=== PATIENT | female | born 1995 | race African-American/Black ===

== ENCOUNTER 2021-03-01 11:59 | Emergency (ER) | payer SELFPAY ==
[2021-03-01 12:10] VITALS: BP 120/72; PULSE 72; RESP 18; TEMP 37.7; O2SAT 94; BMI 27.3
[2021-03-01 12:37] LABS: Glucose Point of Care 109 mg/dL (70-110)
[2021-03-01 13:31] LABS: Basophils % 0.3 %; Eosinophils # 0.1 10^3/uL (0.0-0.8); Hematocrit 38.7 % (37.0-47.0); Hemoglobin 12.9 g/dL (11.5-15.3); Lymphocytes # 2.2 10^3/uL (0.8-4.8); Lymphocytes % 34.6 %; Mean Corpuscular HGB Conc 33.3 g/dL (30.0-36.0); Mean Corpuscular Hemoglobin 29.9 pg (28.0-34.0); Mean Corpuscular Volume 89.6 fL (81-99); Mean Platelet Volume 9.3 fL (7.4-10.4); Monocytes # 0.4 10^3/uL (0.2-0.9); Monocytes % 5.6 %; Neutrophils # 3.63 10^3/uL (1.8-7.7); Neutrophils % 58.3 %; Nucleated Red Blood Cells % 0 %; Platelet Count 200 10^3/cmm (130-400); Red Blood Count 4.32 10^6/uL (4.1-5.3); Red Cell Distribution Width 11.6 % (12.1-15.1); White Blood Count 6.2 10^3/uL (4.0-10.0)
--- NOTE | 2021-03-01 13:40 | W.ED.GENADLT ---
HPI - General Adult General: Chief complaint: General Medical Stated complaint: blood sugar high, HTN Time Seen by Provider: 03/01/21 13:15 History of Present Illness: HPI narrative: Patient is a 25-year-old female comes to the ED for blood sugar issues. Patient says for the past several months at least once a week she has episodes where she feels a little shaky around midday and then when she eats something or drinks something with sugar she feels better. She checked her blood sugar after similar episode couple weeks ago and it was elevated and she said the number was around 180-190. Patient denies any current symptoms here in the ED. Associated symptoms: Deny chest pain, dyspnea, headache(s), nausea, rash, palpitations or vomiting Review of Systems Const: Denies: fever(s), chills or fatigue Eyes: Denies: change in vision or eye discomfort ENMT: Denies: throat pain, odynophagia, nasal discharge or nasal congestion Card: Denies: chest pain, palpitations, edema, swelling of feet/ankles, dyspnea on exertion or orthopnea Resp: Denies: dyspnea, productive cough or non-productive cough GI: Denies: abdominal pain, nausea, vomiting, diarrhea, constipation or hematochezia : Denies: flank pain, dysuria or hematuria Musc: Denies: neck pain, back pain or extremity swelling Skin/Breast: Denies: rash or new lesions Neuro: Denies: headache(s), numbness in extremities or weakness in extremities Physical Exam Const: COMMON NORMALS: no acute distress, patient oriented x3 and alert GENERAL APPEARANCE: cooperative and comfortable HENMT: COMMON NORMALS: normocephalic HEAD & SCALP: normocephalic MOUTH: Normal oral and palatal mucosa present THROAT: posterior oropharynx normal and uvula midline Neck/C-Spine: COMMON NORMALS: supple GENERAL: Yes normal visual inspection Resp: COMMON NORMALS: normal respiratory effort, No retractions, No use of accessory muscles and clear to auscultation bilaterally AUSCULTATION: clear to auscultation bilaterally Cardio: COMMON NORMALS: regular rate, regular rhythm, S1 normal heart sound present, S2 normal heart sound present, No gallops present (Cardio), No clicks present (Cardio), No murmurs present (Cardio) and Peripheral pulses 2+ throughout RATE: regular rate RHYTHM: regular rhythm HEART SOUNDS: S1 normal heart sound present and S2 normal heart sound present PERIPHERAL PULSES: Peripheral pulses 2+ throughout GI: COMMON NORMALS: Normal to inspection, nondistended, normoactive bowel sounds present, Soft to palpation, non-tender and no masses PALPATION: Yes Soft to palpation : COMMON NORMALS: Yes no CVA tenderness BLADDER/KIDNEY EXAM: Yes no CVA tenderness Back/Pelvis: COMMON NORMALS: no CVA tenderness Extremity: COMMON NORMALS: normal to inspection Neuro: COMMON NORMALS: patient oriented x3 and moves all extremities SENSORIUM/ORIENTATION: Yes alert Skin: GENERAL SKIN EXAM: dry skin Course Vital Signs: Vital signs: Vital Signs Temperature 99.8 F H 03/01/21 12:10 Pulse Rate 72 03/01/21 12:10 Respiratory Rate 18 03/01/21 12:10 Blood Pressure 120/72 03/01/21 12:10 Pulse Oximetry 94 03/01/21 12:10 MDM - General Adult MDM Narrative: Medical decision making narrative: Patient is a 25-year-old female who comes to the ED to get her blood glucose checked. Patient says for the past several months at least once a week she develops feeling of shakiness and fatigue that resolves after she has some snack or sugary drink, so she is concerned that she might have diabetes or some blood sugar issues. She is asymptomatic here in the ED. Blood glucose was 109 and the rest of CBC and CMP were unremarkable. UA unremarkable. hCG was negative. Her exam was normal she is healthy appearing and in no acute distress. Patient was discharged home and told to follow-up with PCP for further evaluation in about a week. Return ED precautions given. Patient understood agree with plan. Lab Data: Attestation: I reviewed the patient's lab results. Labs: Lab Results 03/01/21 03/01/21 03/01/21 Range/Units 12:10 13:20 13:20 WBC 6.2 (4.0-10.0) 10^3/ uL RBC 4.32 (4.1-5.3) 10^6/u L Hgb 12.9 (11.5-15.3) g/dL Hct 38.7 (37.0-47.0) % MCV 89.6 (81-99) fL MCH 29.9 (28.0-34.0) pg MCHC 33.3 (30.0-36.0) g/dL RDW 11.6 L (12.1-15.1) % Plt Count 200 (130-400) 10^3/c mm MPV 9.3 (7.4-10.4) fL Neut % (Auto) 58.3 % Lymph % (Auto) 34.6 % [place] % (Auto) 5.6 % Eos % (Auto) 1.0 % Baso % (Auto) 0.3 % Neut # (Auto) 3.63 (1.8-7.7) 10^3/u L Lymph # (Auto) 2.2 (0.8-4.8) 10^3/u L [place] # (Auto) 0.4 (0.2-0.9) 10^3/u L Eos # (Auto) 0.1 (0.0-0.8) 10^3/u L Baso # (Auto) 0.0 (0.0-0.1) 10^3/u L Nucleated RBC % (a uto) 0 % Nucleated RBCs # 0.0 /100WBC Sodium 138 (136-145) mmol/L Potassium 4.1 (3.5-5.1) mmol/L Chloride 103 (98-107) mmol/L Carbon Dioxide 24 (22-29) mmol/L Anion Gap 15.1 (5-19) BUN 9 (6-20) mg/dL Creatinine 0.7 (0.5-0.9) mg/dL GFR Calculation 123.4 (90-130) mL/min Glucose 91 (65-115) mg/dL POC Glucose 109 (70-110) mg/dL Calculated Osmolal ity 284 L (285-295) mOsm/k g Calcium 8.9 (8.5-10.5) mg/dL Total Bilirubin 0.6 (0.15-1.2) mg/dL AST 14 (0-32) U/L ALT 9 (0-33) U/L Alkaline Phosphata se 67 (35-105) IU/L Total Protein 6.9 (6.6-8.7) g/dL Albumin 4.0 (3.5-5.2) g/dL Globulin 2.9 (1.3-4.6) g/dL HCG, Qual (Negative) Urine Color (Yellow) Urine Appearance (CLEAR) Urine pH (5-7) Ur Specific Gravit y (1.005-1.030) Urine Protein (Negative) Urine Glucose (UA) (Normal) Urine Ketones (Negative) Urine Blood (Negative) Urine Nitrate (Negative) Urine Bilirubin (Negative) Urine Urobilinogen (Negative) mg/dL Ur Leukocyte Sarai ase (Negative) Urine RBC (0-2) /hpf Urine WBC (0-5) /hpf Ur Squamous Epith Cells (0-5) /hpf Amorphous Sediment /hpf Urine Bacteria (NONE) /hpf Urine Mucus /hpf 03/01/21 03/01/21 Range/Units 13:20 13:20 WBC (4.0-10.0) 10^3/ uL RBC (4.1-5.3) 10^6/u L Hgb (11.5-15.3) g/dL Hct (37.0-47.0) % MCV (81-99) fL MCH (28.0-34.0) pg MCHC (30.0-36.0) g/dL RDW (12.1-15.1) % Plt Count (130-400) 10^3/c mm MPV (7.4-10.4) fL Neut % (Auto) % Lymph % (Auto) % [place] % (Auto) % Eos % (Auto) % Baso % (Auto) % Neut # (Auto) (1.8-7.7) 10^3/u L Lymph # (Auto) (0.8-4.8) 10^3/u L [place] # (Auto) (0.2-0.9) 10^3/u L Eos # (Auto) (0.0-0.8) 10^3/u L Baso # (Auto) (0.0-0.1) 10^3/u L Nucleated RBC % (a uto) % Nucleated RBCs # /100WBC Sodium (136-145) mmol/L Potassium (3.5-5.1) mmol/L Chloride (98-107) mmol/L Carbon Dioxide (22-29) mmol/L Anion Gap (5-19) BUN (6-20) mg/dL Creatinine (0.5-0.9) mg/dL GFR Calculation (90-130) mL/min Glucose (65-115) mg/dL POC Glucose (70-110) mg/dL Calculated Osmolal ity (285-295) mOsm/k g Calcium (8.5-10.5) mg/dL Total Bilirubin (0.15-1.2) mg/dL AST (0-32) U/L ALT (0-33) U/L Alkaline Phosphata se (35-105) IU/L Total Protein (6.6-8.7) g/dL Albumin (3.5-5.2) g/dL Globulin (1.3-4.6) g/dL HCG, Qual Negative (Negative) Urine Color Dark yellow (Yellow) Urine Appearance Clear (CLEAR) Urine pH 5 (5-7) Ur Specific Gravit y 1.030 (1.005-1.030) Urine Protein Neg (Negative) Urine Glucose (UA) Norm (Normal) Urine Ketones 1+ H (Negative) Urine Blood Neg (Negative) Urine Nitrate Negative (Negative) Urine Bilirubin 1+ H (Negative) Urine Urobilinogen 1 H (Negative) mg/dL Ur Leukocyte Sarai ase Trace H (Negative) Urine RBC 0-4 H (0-2) /hpf Urine WBC 0-4 H (0-5) /hpf Ur Squamous Epith Cells 5-10 H (0-5) /hpf Amorphous Sediment 2+ /hpf Urine Bacteria 1+ H (NONE) /hpf Urine Mucus 1+ /hpf Discharge Plan Discharge Patient Disposition: Home Clinical Impression: Encounter for laboratory test, Normal exam Condition: Stable Discharge Orders: Discharge ED (Routine); Ordered 03/01/21 Ordered By: Eduardo Guthrie Discharge Diet: Regular Discharge Activity: Resume usual activity Activity Restrictions/Additional Instructions: Follow-up with medical provider as directed. Continue taking all previously prescribed medications. Return to the ER or your medical provider if condition worsens. Please read and understand discharge instructions. Thank you for choosing [facility] for your healthcare needs today. Please realize this is an emergency room and that we are providing you with a medical screening exam and this may not be complete and all inclusive of all the testing and or work up that you may need to determine your ailment or severity of your illness. It is very important that you follow up as instructed or that you return to the Emergency Department should you have concerns or if your condition changes or worsens in any way. Coding Level of Care Code ED Electrical Engineering Technologist for Daylin Fwshikha Exam Comprehensive
[2021-03-01 14:08] LABS: Bilirubin Urine 1+ (Negative); Blood Urine Neg (Negative); Glucose Urine UA Norm (Normal); Ketones Urine 1+ (Negative); Leukocyte Esterase Urine Trace (Negative); Nitrate Urine Negative (Negative); Protein Urine Neg (Negative); Urine Appearance Clear (CLEAR); Urine Color Dark Yellow (Yellow); Urobilinogen Urine 1 mg/dL (Negative); pH Urine 5 (5-7)
[2021-03-01 14:10] LABS: HCG, Serum Qual Negative (Negative)
[2021-03-01 14:14] LABS: Alanine Aminotransferase 9 U/L (0-33); Alkaline Phosphatase 67 IU/L (35-105); Anion Gap 15.1 (5-19); Aspartate Amino Transferase 14 U/L (0-32); Blood Urea Nitrogen 9 mg/dL (6-20); Calcium 8.9 mg/dL (8.5-10.5); Carbon Dioxide 24 mmol/L (22-29); Chloride 103 mmol/L (98-107); Globulin 2.9 g/dL (1.3-4.6); Glomerular Filtration Rate 123.4 mL/min (90-130); Glucose 91 mg/dL (65-115); Osmolality Calculated 284 mOsm/kg (285-295); Potassium 4.1 mmol/L (3.5-5.1); Sodium 138 mmol/L (136-145); Total Bilirubin 0.6 mg/dL (0.15-1.2); Total Protein 6.9 g/dL (6.6-8.7)
[2021-03-01 14:20] LABS: Bacteria Urine 1+ /hpf; RBC Urine 0-4 /hpf (0-2); WBC Urine 0-4 /hpf (0-5)
[2021-03-01 14:21] LABS: Add Urine Culture? No; Amorphous Sediment Urine 2+ /hpf; Mucus Urine 1+ /hpf
== END 2021-03-01 15:18 | disposition home or self-care (01) ==
PROVIDERS: Emergency Provider Physician Assistant
DX: Z03.89 Encounter for observation for other suspected diseases and conditions ruled out (principal)
CPT/HCPCS: 36416; 80053; 81001; 82962; 84703; 85025; 99282

== ENCOUNTER 2022-04-12 11:34 | Emergency (ER) | payer MEDICAID, SELFPAY ==
[2022-04-12 11:37] VITALS: BP 105/63; PULSE 98; RESP 14; TEMP 36.8; O2SAT 95; BMI 26.6
--- NOTE | 2022-04-12 12:24 | US_ITS ---
WS: [id number] ULTRASOUND EARLY TECHNIQUE: Transabdominal sonography of the pelvis was performed. Followed by transvaginal sonography to better evaluate the uterus and ovaries. CLINICAL INFORMATION: + test, bleeding, LLQ pain LMP: 03/14/2022 Beta hCG: Unknown. COMPARISON: None. FINDINGS: UTERUS AND GESTATIONAL SAC Endometrial thickening with tiny suspected gestational sac measuring 2.7 mm. Recommend short interval follow-up in further assessment. No visualized yolk sac. LEFT ovarian cyst measuring 2.0 x 2.2 x 2.0 cm Estimated gestational age: 5w0d Estimated delivery December 13, 2022 OVARIES Right ovary: Normal. Left ovary: LEFT ovarian cyst. FREE FLUID Minimal US/US OB <=14 wk fetus w transvag IMPRESSION: 1. Cervix is long and closed. 2. Possible gestational sac measuring 2.7 mm corresponds to a 5 week 0 day ges tation. 3. Recommend short interval follow-up in further evaluation. 4. Normal RIGHT ovary. 5. LEFT ovarian cyst. 6. Trace free fluid in the cul-de-sac.
--- NOTE | 2022-04-12 12:28 | ED_ITS ---
Documented by User: Hui Perez PA-C 04/12/22 13:50 HPI - General: Chief complaint: Vaginal Bleeding Stated complaint: Prolonged bleeding and uterine cramps Time Seen by Provider: 04/12/22 12:02 Source: patient Mode of arrival: ambulatory Limitations: no limitations History of Present Illness: 27-year-old female presents to the ER today for vaginal bleeding x1 month. Patient reports her last normal period was March 14. Patient reports this lasted about 3 days like normal and went away and then within 2 days she started bleeding again. Patient reports it is bright red blood throughout the day. Patient reports some cramping in the lower abdomen including left lower quadrant pain. Patient reports home urine test was negative. Patient does report being sexually active. She is monogamous with her partner and denies STDs. Patient reports some mild pain with urination especially at the end of her urine stream. Denies blood in her urine. Date of Last Menstrual Period: 03/14/22 Review of Systems General: Reports: 10 or more systems reviewed and unremarkable except in HPI and below [facility] ED Female Reproductive History: Date of last menstrual period: 03/14/22 Physical Exam Const: COMMON NORMALS: no acute distress, average body habitus, patient oriented x3, no limitations, healthy appearing, alert and well nourished Resp: COMMON NORMALS: normal respiratory effort, No retractions and clear to auscultation bilaterally AUSCULTATION: clear to auscultation bilaterally Cardio: COMMON NORMALS: regular rate, regular rhythm and No murmurs present (Cardio) RATE: regular rate RHYTHM: regular rhythm GI: COMMON NORMALS: Normal to inspection, nondistended, normoactive bowel sounds present and Soft to palpation PALPATION: Yes Soft to palpation OTHER: Patient has mild left lower quadrant tenderness and suprapubic tenderness. No obvious uterine enlargement was palpated. Back/Pelvis: COMMON NORMALS: thoraco-lumbar ROM normal Extremity: COMMON NORMALS: normal to inspection and full ROM Neuro: COMMON NORMALS: patient oriented x3 SENSORIUM/ORIENTATION: Yes alert Psych: COMMON NORMALS: mental status grossly normal, Normal thought process present and cooperative THOUGHT PROCESS: Normal thought process present Skin: COMMON NORMALS: no rashes or lesions noted and no wounds GENERAL SKIN EXAM: no rashes or lesions noted Course ED course: 27-year-old female presents to the ER today for prolonged vaginal bleeding x1 month. Patient reports her last normal period was the end of February and it lasted for about 3 days which is normal. She reports she was off of it for couple days before she started bleeding again. Patient reports this is bright red blood that is happening daily. She also reports some lower abdominal cramping including left lower quadrant tenderness and cramping. Patient reports some pain with urination. Patient reports home test was negative. test in the ER today was positive. We will do a beta hCG quantitative and also further testing to rule out ectopic . Vital Signs: Vital signs: Vital Signs Temperature 98.2 F 04/12/22 11:37 Pulse Rate 98 04/12/22 11:37 Respiratory Rate 14 04/12/22 11:37 Blood Pressure 105/63 04/12/22 11:37 Pulse Oximetry 95 04/12/22 11:37 Oxygen Delivery Me thod 04/12/22 11:37 MDM - OB/Uterine Contractions Medical Decision Making 27-year-old female presents to the ER today for prolonged vaginal bleeding x1 month. Patient reports her last normal period was the end of February and it lasted for about 3 days which is normal. She reports she was off of it for couple days before she started bleeding again. Patient reports this is bright red blood manohar t is happening daily. She also reports some lower abdominal cramping including left lower quadrant tenderness and cramping. Patient reports some pain with urination. Patient reports home test was negative. test in the ER today was positive. We will do a beta hCG quantitative and also further testing to rule out ectopic . Patient's urine was positive beta hCG was also positive at 292 however that is low normal. That would be reasonable for an early . On ultrasound there is a possible gestational sac approximately 5 weeks along. Discussed these findings with patient. I would recommend follow-up with PCP in 3 to 4 days for repeat beta-hC G. Patient's labs are otherwise okay. Elevated alk phos which is also to be expected with . Patient should take a daily vitamin. Return to the ER with any new or worsening symptoms. Patient verbalized understanding and was in agreement with the treatment plan. Lab Data : 04/12/22 12:40 04/12/22 12:40 Radiology Impressions Obstetrics Ultrasound 04/12/22 12:24 IMPRESSION: 1. Cervix is long and closed. 2. Possible gestational sac measuring 2.7 mm corresponds to a 5 week 0 day gestation. 3. Recommend short interval follow-up in further evaluation. 4. Normal RIGHT ovary. 5. LEFT ovarian cyst. 6. Trace free fluid in the cul-de-sac. Laboratory Results WBC 6.9 10^3/uL (4.0-10.0) 04/12/22 12:40 RBC 4.85 10^6/uL (4.1-5.3) 04/12/22 12:40 Hgb 13.7 g/dL (11.5-15.3) 04/12/22 12:40 Hct 43.7 % (37.0-47.0) 04/12/22 12:40 MCV 90.1 fl (81-99) 04/12/22 12:40 MCH 28.2 pg (28.0-34.0) 04/12/22 12:40 MCHC 31.4 g/dL (30.0-36.0) 04/12/22 12:40 RDW 14.4 % (12.1-15.1) 04/12/22 12:40 Plt Count 238 10^3/cmm (130-400) 04/12/22 12:40 MPV 8.6 fL (7.4-10.4) 04/12/22 12:40 Neut % (Auto) 53.1 % 04/12/22 12:40 Lymph % (Auto) 40.1 % 04/12/22 12:40 [place] % (Auto) 5.1 % 04/12/22 12:40 Eos % (Auto) 0.9 % 04/12/22 12:40 Baso % (Auto) 0.4 % 04/12/22 12:40 Neut # (Auto) 3.63 10^3/uL (1.8-7.7) 04/12/22 12:40 Lymph # (Auto) 2.8 10^3/uL (0.8-4.8) 04/12/22 12:40 [place] # (Auto) 0.4 10^3/uL (0.2-0.9) 04/12/22 12:40 Eos # (Auto) 0.1 10^3/uL (0.0-0.8) 04/12/22 12:40 Baso # (Auto) 0.0 10^3/uL (0.0-0.1) 04/12/22 12:40 Nucleated RBC % (auto) 0 % 04/12/22 12:40 Nucleated RBCs # 0.0 /100WBC 04/12/22 12:40 Sodium 137 mmol/L (136-145) 04/12/22 12:40 Potassium 4.1 mmol/L (3.5-5.1) 04/12/22 12:40 Chloride 98 mmol/L (98-107) 04/12/22 12:40 Carbon Dioxide 28 mmol/L (22-29) 04/12/22 12:40 Anion Gap 15.1 (5-19) 04/12/22 12:40 BUN 7 mg/dL (6-20) 04/12/22 12:40 Creatinine 0.9 mg/dL (0.5-0.9) 04/12/22 12:40 GFR Calculation 90.9 mL/min (90-130) 04/12/22 12:40 Glucose 88 mg/dL (65-115) 04/12/22 12:40 Calculated Osmolality 281 mOsm/kg (285-295) L 04/12/22 12:40 Calcium 9.8 mg/dL (8.5-10.5) 04/12/22 12:40 Total Bilirubin 0.6 mg/dL (0.15-1.2) 04/12/22 12:40 AST 18 U/L (0-32) 04/12/22 12:40 ALT 9 U/L (0-33) 04/12/22 12:40 Alkaline Phosphatase 203 U/L (35-105) H 04/12/22 12:40 Total Protein 8.1 g/dL (6.6-8.7) 04/12/22 12:40 Albumin 4.6 g/dL (3.5-5.2) 04/12/22 12:40 Globulin 3.5 g/dL (1.3-4.6) 04/12/22 12:40 Ser , Semi-Qnt 292.10 mIU/mL 04/12/22 12:40 Urine HCG, Qual Positive (Negative) H 04/12/22 11:56 Critical Care Time Critical Care Time: Critical Care Time: No Discharge Plan Discharge Patient Disposition: Home Clinical Impression: Vaginal bleeding in Condition: Stable Discharge Orders: Discharge ED (Routine); Ordered 04/12/22 Ordered By: Hui Perez Referrals: [facility], [Primary Care Provider] - Discharge Diet: Usual diet Discharge Activity: Resume usual activity Patient Instructions: Opioid Safety Activity Restrictions/Additional Instructions: Follow-up with PCP in 48 to 72 hours for repeat beta-hCG. Would recommend an [id number] vitamin daily. Return to the ER with any new or worsening symptoms. Coding Level of Care Code ED Irish Moss Operator for Chg Fwd Exam Comprehensive Documented by User: Rayo Grewal DO 04/13/22 06:46 HPI - General: Chief complaint: Vaginal Bleeding Stated complaint: Prolonged bleeding and uterine cramps Time Seen by Provider: 04/12/22 12:02 Course Vital Signs: Vital signs: Vital Signs Temperature 98.2 F 04/12/22 11:37 Pulse Rate 98 04/12/22 11:37 Respiratory Rate 14 04/12/22 11:37 Blood Pressure 105/63 04/12/22 11:37 Pulse Oximetry 95 04/12/22 11:37 Oxygen Delivery Me thod 04/12/22 11:37 MDM - OB/Uterine Contractions Medical Decision Making 27-year-old female presents to the ER today for prolonged vaginal bleeding x1 month. Patient reports her last normal period was the end of February and it lasted for about 3 days which is normal. She reports she was off of it for couple days before she started bleeding again. Patient reports this is bright red blood that is happening daily. She also reports some lower abdominal cramping including left lower quadrant tenderness and cramping. Patient reports some pain with urination. Patient reports home test was negative. test in the ER today was positive. We will do a beta hCG quantitative and also further testing to rule out ectopic . Patient's urine was positive beta hCG was also positive at 292 however that is low normal. That would be reasonable for an early . On ultrasound there is a possible gestational sac approximately 5 weeks along. Discussed these findings with patient. I would recommend follow-up with PCP in 3 to 4 days for repeat beta-hCG. Patient's labs are otherwise okay. Elevated alk phos which is also to be expected with . Patient should take a daily vitamin. Return to the ER with any new or worsening symptoms. Patient verbalized understanding and was in agreement with the treatment plan. Chart reviewed and patient discussed with midlevel. Agree with assessment and plan. Medical Records I reviewed the patient's medical records. Lab Data : 04/12/22 12:40 04/12/22 12:40 Radiology Impressions Obstetrics Ultrasound 04/12/22 12:24 IMPRESSION: 1. Cervix is long and closed. 2. Possible gestational sac measuring 2.7 mm corresponds to a 5 week 0 day gestation. 3. Recommend short interval follow-up in further evaluation. 4. Normal RIGHT ovary. 5. LEFT ovarian cyst. 6. Trace free fluid in the cul-de-sac. Laboratory Results WBC 6.9 10^3/uL (4.0-10.0) 04/12/22 12:40 RBC 4.85 10^6/uL (4.1-5.3) 04/12/22 12:40 Hgb 13.7 g/dL (11.5-15.3) 04/12/22 12:40 Hct 43.7 % (37.0-47.0) 04/12/22 12:40 MCV 90.1 fl (81-99) 04/12/22 12:40 MCH 28.2 pg (28.0-34.0) 04/12/22 12:40 MCHC 31.4 g/dL (30.0-36.0) 04/12/22 12:40 RDW 14.4 % (12.1-15.1) 04/12/22 12:40 Plt Count 238 10^3/cmm (130-400) 04/12/22 12:40 MPV 8.6 fL (7.4-10.4) 04/12/22 12:40 Neut % (Auto) 53.1 % 04/12/22 12:40 Lymph % (Auto) 40.1 % 04/12/22 12:40 [place] % (Auto) 5.1 % 04/12/22 12:40 Eos % (Auto) 0.9 % 04/12/22 12:40 Baso % (Auto) 0.4 % 04/12/22 12:40 Neut # (Auto) 3.63 10^3/uL (1.8-7.7) 04/12/22 12:40 Lymph # (Auto) 2.8 10^3/uL (0.8-4.8) 04/12/22 12:40 [place] # (Auto) 0.4 10^3/uL (0.2-0.9) 04/12/22 12:40 Eos # (Auto) 0.1 10^3/uL (0.0-0.8) 04/12/22 12:40 Baso # (Auto) 0.0 10^3/uL (0.0-0.1) 04/12/22 12:40 Nucleated RBC % (auto) 0 % 04/12/22 12:40 Nucleated RBCs # 0.0 /100WBC 04/12/22 12:40 Sodium 137 mmol/L (136-145) 04/12/22 12:40 Potassium 4.1 mmol/L (3.5-5.1) 04/12/22 12:40 Chloride 98 mmol/L (98-107) 04/12/22 12:40 Carbon Dioxide 28 mmol/L (22-29) 04/12/22 12:40 Anion Gap 15.1 (5-19) 04/12/22 12:40 BUN 7 mg/dL (6-20) 04/12/22 12:40 Creatinine 0.9 mg/dL (0.5-0.9) 04/12/22 12:40 GFR Calculation 90.9 mL/min (90-130) 04/12/22 12:40 Glucose 88 mg/dL (65-115) 04/12/22 12:40 Calculated Osmolality 281 mOsm/kg (285-295) L 04/12/22 12:40 Calcium 9.8 mg/dL (8.5-10.5) 04/12/22 12:40 Total Bilirubin 0.6 mg/dL (0.15-1.2) 04/12/22 12:40 AST 18 U/L (0-32) 04/12/22 12:40 ALT 9 U/L (0-33) 04/12/22 12:40 Alkaline Phosphatase 203 U/L (35-105) H 04/12/22 12:40 Total Protein 8.1 g/dL (6.6-8.7) 04/12/22 12:40 Albumin 4.6 g/dL (3.5-5.2) 04/12/22 12:40 Globulin 3.5 g/dL (1.3-4.6) 04/12/22 12:40 Ser , Semi-Qnt 292.10 mIU/mL 04/12/22 12:40 Urine HCG, Qual Positive (Negative) H 04/12/22 11:56 Discharge Plan Discharge Patient Disposition: Home Clinical Impression: Vaginal bleeding in Condition: Stable Discharge Orders: Discharge ED (Routine); Ordered 04/12/22 Ordered By: Hui Perez Referrals: [facility], [Primary Care Provider] - Discharge Diet: Usual diet Discharge Activity: Resume usual activity Patient Instructions: Opioid Safety Activity Restrictions/Additional Instructions: Follow-up with PCP in 48 to 72 hours for repeat beta-hCG. Would recommend an [id number] vitamin daily. Return to the ER with any new or worsening symptoms. Coding Level of Care Code ED Irish Moss Operator for [place] Fwd Exam Comprehensive
[2022-04-12 12:59] LABS: Basophils % 0.4 %; Eosinophils # 0.1 10^3/uL (0.0-0.8); Eosinophils % 0.9 %; Hematocrit 43.7 % (37.0-47.0); Hemoglobin 13.7 g/dL (11.5-15.3); Lymphocytes # 2.8 10^3/uL (0.8-4.8); Lymphocytes % 40.1 %; Mean Corpuscular HGB Conc 31.4 g/dL (30.0-36.0); Mean Corpuscular Hemoglobin 28.2 pg (28.0-34.0); Mean Corpuscular Volume 90.1 fl (81-99); Mean Platelet Volume 8.6 fL (7.4-10.4); Monocytes # 0.4 10^3/uL (0.2-0.9); Monocytes % 5.1 %; Neutrophils # 3.63 10^3/uL (1.8-7.7); Neutrophils % 53.1 %; Nucleated Red Blood Cells % 0 %; Platelet Count 238 10^3/cmm (130-400); Red Blood Count 4.85 10^6/uL (4.1-5.3); Red Cell Distribution Width 14.4 % (12.1-15.1); White Blood Count 6.9 10^3/uL (4.0-10.0)
[2022-04-12 13:37] LABS: Alanine Aminotransferase 9 U/L (0-33); Albumin Level 4.6 g/dL (3.5-5.2); Alkaline Phosphatase 203 U/L (35-105); Anion Gap 15.1 (5-19); Aspartate Amino Transferase 18 U/L (0-32); Blood Urea Nitrogen 7 mg/dL (6-20); Calcium 9.8 mg/dL (8.5-10.5); Carbon Dioxide 28 mmol/L (22-29); Chloride 98 mmol/L (98-107); Globulin 3.5 g/dL (1.3-4.6); Glomerular Filtration Rate 90.9 mL/min (90-130); Glucose 88 mg/dL (65-115); Osmolality Calculated 281 mOsm/kg (285-295); Potassium 4.1 mmol/L (3.5-5.1); Sodium 137 mmol/L (136-145); Total Bilirubin 0.6 mg/dL (0.15-1.2); Total Protein 8.1 g/dL (6.6-8.7)
== END 2022-04-12 13:50 | disposition home or self-care (01) ==
PROVIDERS: Emergency Medicine; Emergency Provider Physician Assistant
DX: O46.91 Antepartum hemorrhage, unspecified, first trimester (principal); Z3A.01 Less than 8 weeks gestation of pregnancy
CPT/HCPCS: 76801; 76817; 80053; 81025; 84702; 85025; 99284

== ENCOUNTER 2022-04-15 19:25 | Emergency (ER) | payer MEDICAID, SELFPAY ==
[2022-04-15 20:19] VITALS: BP 125/61; PULSE 69; RESP 18; TEMP 36.7; O2SAT 98; BMI 25.9
[2022-04-15 20:36] LABS: Basophils % 0.3 %; Eosinophils # 0.1 10^3/uL (0.0-0.8); Eosinophils % 1.5 %; Hematocrit 40.5 % (37.0-47.0); Hemoglobin 13.2 g/dL (11.5-15.3); Lymphocytes # 2.4 10^3/uL (0.8-4.8); Lymphocytes % 33.4 %; Mean Corpuscular HGB Conc 32.6 g/dL (30.0-36.0); Mean Corpuscular Hemoglobin 28.9 pg (28.0-34.0); Mean Corpuscular Volume 88.8 fl (81-99); Mean Platelet Volume 8.8 fL (7.4-10.4); Monocytes # 0.4 10^3/uL (0.2-0.9); Monocytes % 5.4 %; Neutrophils # 4.26 10^3/uL (1.8-7.7); Neutrophils % 59.1 %; Nucleated Red Blood Cells % 0 %; Platelet Count 220 10^3/cmm (130-400); Red Blood Count 4.56 10^6/uL (4.1-5.3); Red Cell Distribution Width 14.2 % (12.1-15.1); White Blood Count 7.2 10^3/uL (4.0-10.0)
[2022-04-15 20:59] LABS: Alanine Aminotransferase 9 U/L (0-33); Albumin Level 3.9 g/dL (3.5-5.2); Alkaline Phosphatase 180 U/L (35-105); Anion Gap 11.7 (5-19); Aspartate Amino Transferase 15 U/L (0-32); Blood Urea Nitrogen 5 mg/dL (6-20); Carbon Dioxide 28 mmol/L (22-29); Chloride 103 mmol/L (98-107); Glomerular Filtration Rate 90.9 mL/min (90-130); Glucose 109 mg/dL (65-115); Lipase 34 U/L (13-60); Osmolality Calculated 286 mOsm/kg (285-295); Potassium 3.7 mmol/L (3.5-5.1); Sodium 139 mmol/L (136-145); Total Bilirubin 0.6 mg/dL (0.15-1.2); Total Protein 6.9 g/dL (6.6-8.7)
--- NOTE | 2022-04-15 21:38 | ED_ITS ---
HPI - General: Chief complaint: Vaginal Bleeding Stated complaint: abd pain Time Seen by Provider: 04/15/22 21:34 History of Present Illness: 27-year-old female comes in today for concerns of miscarriage. Patient continues to have some light vaginal bleeding during . Patient was seen on Friday and it was noted that her hCG was in the low 200s. Patient came back today for reevaluation of hCG level. Patient reports some cramping but no severe pain. Patient appears nontoxic. Patient appears in mild to no pain. Date of Last Menstrual Period: 03/10/22 Review of Systems General: Reports: 10 or more systems reviewed and unremarkable except in HPI and below : Reports: vaginal bleeding [facility] Female Reproductive History: Date of last menstrual period: 03/10/22 Physical Exam 2 Const: COMMON NORMALS: alert HENMT: COMMON NORMALS: normocephalic HEAD & SCALP: normocephalic Neck/C-Spine: COMMON NORMALS: full ROM Resp: COMMON NORMALS: normal respiratory effort and clear to auscultation bilaterally AUSCULTATION: clear to auscultation bilaterally Cardio: COMMON NORMALS: regular rate and regular rhythm RATE: regular rate RHYTHM: regular rhythm GI: COMMON NORMALS: Soft to palpation PALPATION: Yes Soft to palpation Extremity: COMMON NORMALS: normal to inspection Neuro: SENSORIUM/ORIENTATION: Yes alert Course Vital Signs: Vital signs: Vital Signs Temperature 98.1 F 04/15/22 20:19 Pulse Rate 69 04/15/22 20:19 Respiratory Rate 18 04/15/22 20:19 Blood Pressure 125/61 04/15/22 20:19 Pulse Oximetry 98 04/15/22 20:19 Oxygen Delivery Me thod 04/15/22 20:19 MDM - OB/Uterine Contractions Medical Decision Making 27-year-old female comes back in for repeat labs. Patient had hCG level done on Friday that showed it in the 200s today she return for repeat hCG. Patient reports some mild bleeding but no significant clots. On exam vital signs are normal. Respirations are even. Lungs are clear to auscultation. Skin is warm dry and pink. Differential diagnosis threatened , bleeding during first term , blighted ovum. hCG showed minimal to no change at 285 today. Patient most likely has a blighted ovum versus a early miscarriage. Case management was requested to help patient set up with a OWNER/PHOTOGRAPHER for further ev aluation and treatment. Reviewed red flags for need to return to the ER. Patient reported understanding and agreed to plan. Lab Data : 04/15/22 20:04/15/22 20: Laboratory Results WBC 7.2 10^3/uL (4.0-10.0) 04/15/22 20: RBC 4.56 10^6/uL (4.1-5.3) 04/15/22 20: Hgb 13.2 g/dL (11.5-15.3) 04/15/22 20: Hct 40.5 % (37.0-47.0) 04/15/22 20: MCV 88.8 fl (81-99) 04/15/22 20: MCH 28.9 pg (28.0-34.0) 04/15/22: MCHC 32.6 g/dL (30.0-36.0) 04/15/22: RDW 14.2 % (12.1-15.1) 04/15/22 20: Plt Count 220 10^3/cmm (130-400) 04/15/22 20: MPV 8.8 fL (7.4-10.4) 04/15/22 20: Neut % (Auto) 59.1 % 04/15/22 20: Lymph % (Auto) 33.4 % 04/15/22 20: [place] % (Auto) 5.4 % 04/15/22: Eos % (Auto) 1.5 % 04/15/22: Baso % (Auto) 0.3 % 04/15/22: Neut # (Auto) 4.26 10^3/uL (1.8-7.7) 04/15/22: Lymph # (Auto) 2.4 10^3/uL (0.8-4.8) 04/15/22 20: [place] # (Auto) 0.4 10^3/uL (0.2-0.9) 04/15/22 20: Eos # (Auto) 0.1 10^3/uL (0.0-0.8) 04/15/22: Baso # (Auto) 0.0 10^3/uL (0.0-0.1) 04/15/22 20:30 Nucleated RBC % (auto) 0 % 04/15/22 20: Nucleated RBCs # 0.0 /100WBC 04/15/22 20:30 Sodium 139 mmol/L (136-145) 04/15/22 20:30 Potassium 3.7 mmol/L (3.5-5.1) 04/15/22 20: Chloride 103 mmol/L (98-107) 04/15/22 20:30 Carbon Dioxide 28 mmol/L (22-29) 04/15/22 20:30 Anion Gap 11.7 (5-19) 04/15/22 20:30 BUN 5 mg/dL (6-20) L 04/15/22 20: Creatinine 0.9 mg/dL (0.5-0.9) 04/15/22 20:30 GFR Calculation 90.9 mL/min (90-130) 04/15/22 20: Glucose 109 mg/dL (65-115) 04/15/22 20:30 Calculated Osmolality 286 mOsm/kg (285-295) 04/15/22 20: Calcium 9.0 mg/dL (8.5-10.5) 04/15/22 20: Total Bilirubin 0.6 mg/dL (0.15-1.2) 04/15/22 20: AST 15 U/L (0-32) 04/15/22 20:30 ALT 9 U/L (0-33) 04/15/22 20: Alkaline Phosphatase 180 U/L (35-105) H 04/15/22 20: Total Protein 6.9 g/dL (6.6-8.7) 04/15/22 20: Albumin 3.9 g/dL (3.5-5.2) 04/15/22 20: Globulin 3.0 g/dL (1.3-4.6) 04/15/22 20: Lipase 34 U/L (13-60) 04/15/22 20:30 HCG, Qual Cancelled 04/15/22 20:30 Ser , Semi-Qnt 285.30 mIU/mL 04/15/22 20:30 Discharge Plan Discharge Patient Disposition: Home Clinical Impression: Miscarriage, threatened, early Condition: Stable Discharge Orders: Discharge ED (Routine); Ordered 04/15/22 Ordered By: Kb Brooks Discharge Diet: Usual diet Discharge Activity: Increase activity as tolerated Patient Instructions: Threatened Miscarriage (ED), Opioid Safety Activity Restrictions/Additional Instructions: Follow-up with OWNER/PHOTOGRAPHER. Case management will contact you with follow-up appointment. Return to the ER for worsening symptoms such as fever greater than 100.4, increased pelvic pain, bleeding more than 1 pad an hour or new concerns. Coding Level of Care Code ED Shoe Cutter for Letyg Fwd Exam Detailed
--- NOTE | 2022-04-16 10:46 | DCPLANNER ---
Addendum entered by Ute Cronin 05/03/22 08:33: closing manager received the following message from the [facility] regarding follow up appointment: TRIED TO CONTACT PT ON 04/16/22 AND 04/17/22. LETTER SENT. REFERRAL DISCARDED DUE TO NON CONTACT. Addendum entered by Ute Cronin 04/25/22 08:20: closing manager received the following message from the [facility] regarding follow up appointment: unable to leave voicemail. Original Note: closing manager had message to schedule a follow up appointment for patient with [facility]. closing manager sent patients information the front office staff at [facility]. Patients information will be printed and reviewed. Clinic will call patient with appointment information.
== END 2022-04-15 22:10 | disposition home or self-care (01) ==
PROVIDERS: Emergency Medicine; Emergency Provider Nurse Practitioner Family
DX: O20.0 Threatened abortion (principal); Z3A.00 Weeks of gestation of pregnancy not specified
CPT/HCPCS: 80053; 83690; 84702; 85025; 99283

== ENCOUNTER 2022-08-30 18:29 | Observation (INO) | payer MEDICAID, SELFPAY ==
[2022-08-30 18:37] VITALS: BP 91/58; PULSE 75; RESP 16; TEMP 36.7; O2SAT 100
--- NOTE | 2022-08-30 18:51 | ED_ITS ---
HPI - General Adult General: Chief complaint: Vaginal Bleeding Stated complaint: vaginal bleeding, constipation, 5 wks Time Seen by Provider: 08/30/22 18:46 Source: patient Mode of arrival: ambulatory Limitations: no limitations History of Present Illness: 27-year-old female states that she believes she is currently 5 weeks states she been having abdominal pain along with some vaginal bleeding. States she has been passing some small blood clots and having cramping. She rates her pain a 4 out of 10 denies any vomiting diarrhea she was having some constipation but did have a bowel movement today. Denies any fevers. Associated symptoms: Deny chest pain, dyspnea, headache(s) or rash Review of Systems Const: Denies: fever(s), chills, body aches or change in appetite Eyes: Denies: blurry vision or eye discomfort ENMT: Denies: throat pain or dental pain Card: Denies: chest pain Resp: Denies: dyspnea GI: Reports: abdominal pain : Reports: vaginal bleeding Musc: Denies: neck pain or back pain Skin/Breast: Denies: rash Neuro: Denies: headache(s) Psych: Denies: depression Tab/Lymph: Denies: easy bruising All/Imm: Denies: urticaria PFSH ED PFSH: Medical History (Updated 08/30/22 @ 22:02 by Marily Cagle MD) No pertinent past medical history Family History Denies family history of Colon cancer Ovarian cancer Diabetes Heart disease Hypercholesteremia Breast cancer Hypertension Uterine cancer Thyroid disease Stroke Social History (Updated 08/30/22 @ 18:52 by Marily Cagle MD) Substance/Drug Use: former Female Reproductive History: Date of last menstrual period: 03/10/22 Physical Exam Const: COMMON NORMALS: no acute distress, patient oriented x3 and healthy appearing HENMT: COMMON NORMALS: normocephalic and atraumatic HEAD & SCALP: normocephalic and atraumatic Eye: COMMON NORMALS: Equal, round and reactive pupils present and EOMs intact bilaterally PUPIL: Yes Equal, round and reactive pupils present Neck/C-Spine: COMMON NORMALS: full ROM and supple Chest: COMMONS NORMALS: normal inspection of the chest and normal palpation of entire chest wall Resp: COMMON NORMALS: normal respiratory effort, No retractions, No use of accessory muscles and clear to auscultation bilaterally AUSCULTATION: clear to auscultation bilaterally Cardio: COMMON NORMALS: regular rate, regular rhythm and No murmurs present (Cardio) RATE: regular rate RHYTHM: regular rhythm GI: COMMON NORMALS: Normal to inspection, nondistended, normoactive bowel sounds present, Soft to palpation, non-tender and no masses PALPATION: Yes Soft to palpation Extremity: COMMON NORMALS: normal to inspection and full ROM Neuro: COMMON NORMALS: patient oriented x3, moves all extremities and no focal motor deficits Psych: COMMON NORMALS: mental status grossly normal, Normal thought process present and cooperative THOUGHT PROCESS: Normal thought process present Skin: COMMON NORMALS: no rashes or lesions noted and no wounds GENERAL SKIN EXAM: no rashes or lesions noted Course Vital Signs: Vital signs: Vital Signs Temperature 98.1 F 08/30/22 18:37 Pulse Rate 81 08/30/22 21:31 Respiratory Rate 16 08/30/22 21:31 Blood Pressure 123/81 08/30/22 21:31 Pulse Oximetry 98 08/30/22 21:31 Oxygen Delivery Me thod 08/30/22 21:31 MDM - General Adult Medical Decision Making Patient presents here with abdominal pain she was found to have an ectopic OB team patient here will take to the OR at this time she has been stable here. Lab Data 08/30/22 19:17 08/30/22 19:17 Radiology Impressions Ultrasound 08/30/22 20:01 IMPRESSION: 1. Live ectopic RIGHT adnexa. There is a heart rate at 153 bpm. 2. [place]-rump length measurement of approximately 8 weeks 0 days. 3. Hemoperitoneum, moderate but greatest in the RIGHT adnexa surrounding the ovary and the ectopic . Notified Marily Cagle MD at 08/30/2022 8:49 PM. Laboratory Results WBC 15.8 10^3/uL (4.0-10.0) H 08/30/22 19:17 RBC 4.17 10^6/uL (4.1-5.3) 08/30/22 19:17 Hgb 12.5 g/dL (11.5-15.3) 08/30/22 19:17 Hct 38.0 % (37.0-47.0) 08/30/22 19:17 MCV 91.1 fl (81-99) 08/30/22 19:17 MCH 30.0 pg (28.0-34.0) 08/30/22 19:17 MCHC 32.9 g/dL (30.0-36.0) 08/30/22 19:17 RDW 11.8 % (12.1-15.1) L 08/30/22 19:17 Plt Count 295 10^3/cmm (130-400) 08/30/22 19:17 MPV 9.0 fL (7.4-10.4) 08/30/22 19:17 Neut % (Auto) 68.6 % 08/30/22 19:17 Lymph % (Auto) 24.4 % 08/30/22 19:17 [place] % (Auto) 4.8 % 08/30/22 19:17 Eos % (Auto) 1.3 % 08/30/22 19:17 Baso % (Auto) 0.3 % 08/30/22 19:17 Neut # (Auto) 10.84 10^3/uL (1.8-7.7) H 08/30/22 19:17 Lymph # (Auto) 3.9 10^3/uL (0.8-4.8) 08/30/22 19:17 [place] # (Auto) 0.8 10^3/uL (0.2-0.9) 08/30/22 19:17 Eos # (Auto) 0.2 10^3/uL (0.0-0.8) 08/30/22 19:17 Baso # (Auto) 0.0 10^3/uL (0.0-0.1) 08/30/22 19:17 Nucleated RBC % (auto) 0 % 08/30/22 19:17 Nucleated RBCs # 0.0 /100WBC 08/30/22 19:17 Sodium 136 mmol/L (136-145) 08/30/22 19:17 Potassium 3.4 mmol/L (3.5-5.1) L 08/30/22 19:17 Chloride 101 mmol/L (98-107) 08/30/22 19:17 Carbon Dioxide 23 mmol/L (22-29) 08/30/22 19:17 Anion Gap 15.4 (5-19) 08/30/22 19:17 BUN 8 mg/dL (6-20) 08/30/22 19:17 Creatinine 0.8 mg/dL (0.5-0.9) 08/30/22 19:17 GFR Calculation 104.1 mL/min (90-130) 08/30/22 19:17 Glucose 116 mg/dL (65-115) H 08/30/22 19:17 Calculated Osmolality 281 mOsm/kg (285-295) L 08/30/22 19:17 Calcium 9.4 mg/dL (8.5-10.5) 08/30/22 19:17 Total Bilirubin 0.6 mg/dL (0.15-1.2) 08/30/22 19:17 AST 11 U/L (0-32) 08/30/22 19:17 ALT 7 U/L (0-33) 08/30/22 19:17 Alkaline Phosphatase 121 U/L (35-105) H 08/30/22 19:17 Total Protein 7.7 g/dL (6.6-8.7) 08/30/22 19:17 Albumin 4.1 g/dL (3.5-5.2) 08/30/22 19:17 Globulin 3.6 g/dL (1.3-4.6) 08/30/22 19:17 Lipase 21 U/L (13-60) 08/30/22 19:17 Ser , Semi-Qnt 87091.00 mIU/mL 08/30/22 19:17 Urine Color Yellow (Yellow) 08/30/22 20:02 Urine Appearance Sl hazy (CLEAR) A 08/30/22 20:02 Urine pH 5 (5-7) 08/30/22 20:02 Ur Specific [place] 1.030 (1.005-1.030) 08/30/22 20:02 Urine Protein Neg (Negative) 08/30/22 20:02 Urine Glucose (UA) Norm (Normal) 08/30/22 20:02 Urine Ketones 2+ (Negative) H 08/30/22 20:02 Urine Blood 3+ (Negative) H 08/30/22 20:02 Urine Nitrate Negative (Negative) 08/30/22 20:02 Urine Bilirubin 1+ (Negative) H 08/30/22 20:02 Urine Urobilinogen 4 mg/dL (Negative) H 08/30/22 20:02 Ur Leukocyte Esterase Negative (Negative) 08/30/22 20:02 Urine RBC 10-15 /hpf (0-2) H 08/30/22 20:02 Urine WBC 0-4 /hpf (0-5) H 08/30/22 20:02 Ur Squamous Epith Cells 15-25 /hpf (0-5) H 08/30/22 20:02 Amorphous Sediment Not Reportable 08/30/22 20:02 Urine Bacteria Trace /hpf (NONE) 08/30/22 20:02 Blood Type O Positive 08/30/22 19:17 Rho(D) Type Positive 08/30/22 19:17 Antibody Screen Negative 08/30/22 19:17 Critical Care Time Critical Care Time: Critical Care Time: Yes Total Critical Care Time: 40 Attestation: The high probability of a clinically significant, sudden or life threatening deterioration of the patient's ob system(s) required my full and direct attention, intervention and personal management. The critical care time is as shown. This time is in addition to time spent performing any reported procedures but includes the following: [x] Data and vital sign review and interpretation [x] Patient assessment, examination and intervention [x] Documentation [x] Medication orders and management Discharge Plan Discharge Patient Disposition: Admitted As Inpatient Clinical Impression: Ectopic without intrauterine Prescriptions: No Action methadone 40 mg Tablet,Soluble 180 mg PO DAILY Coding Level of Care Code ED Brick Pitcher for [place] Fwd Exam Comprehensive
--- NOTE | 2022-08-30 19:18 | PC.NURSE ---
Pt states she does not want the IV at this time, lab was able to get blood drawn.
[2022-08-30 19:29] LABS: Basophils % 0.3 %; Eosinophils # 0.2 10^3/uL (0.0-0.8); Eosinophils % 1.3 %; Hemoglobin 12.5 g/dL (11.5-15.3); Lymphocytes # 3.9 10^3/uL (0.8-4.8); Lymphocytes % 24.4 %; Mean Corpuscular HGB Conc 32.9 g/dL (30.0-36.0); Mean Corpuscular Volume 91.1 fl (81-99); Monocytes # 0.8 10^3/uL (0.2-0.9); Monocytes % 4.8 %; Neutrophils # 10.84 10^3/uL (1.8-7.7); Neutrophils % 68.6 %; Nucleated Red Blood Cells % 0 %; Platelet Count 295 10^3/cmm (130-400); Red Blood Count 4.17 10^6/uL (4.1-5.3); Red Cell Distribution Width 11.8 % (12.1-15.1); White Blood Count 15.8 10^3/uL (4.0-10.0)
--- NOTE | 2022-08-30 20:01 | US_ITS ---
WS: [id number] EARLY OBSTETRICAL ULTRASOUND (<14 WEEKS). HISTORY: abd pain, early . COMPARISON: None available. No intrauterine gestation identified. There is heterogeneity and marked thickening of the endometrium measuring up to 14 mm. Moderate amount of complex fluid in the cul-de-sac. In the RIGHT adnexa there is heterogeneous blood products surrounding the RIGHT ovary. There is in the additional soft tissue mass separate from the o vary which contains what appears to be a crown-rump length and gestational sac. Ectopic is positioned posterior to the RIGHT ovary. [place]-rump length is measuring approximately 8 weeks 0 days. There is a heart rate of 153 bpm. Both ovaries are identified separately and contain numerous small peripheral follicles. US/US OB <= 14 weeks fetus [id number] IMPRESSION: 1. Live ectopic RIGHT adnexa. There is a heart rate at 153 bpm . 2. [place]-rump length measurement of approximately 8 weeks 0 days. 3. Hemoperitoneum, moderate but greatest in the RIGHT adnexa surrounding the o vary and the ectopic . Notified Marily Cagle MD at 08/30/2022 8:49 PM.
[2022-08-30 20:02] LABS: Alanine Aminotransferase 7 U/L (0-33); Albumin Level 4.1 g/dL (3.5-5.2); Alkaline Phosphatase 121 U/L (35-105); Anion Gap 15.4 (5-19); Aspartate Amino Transferase 11 U/L (0-32); Blood Urea Nitrogen 8 mg/dL (6-20); Calcium 9.4 mg/dL (8.5-10.5); Carbon Dioxide 23 mmol/L (22-29); Chloride 101 mmol/L (98-107); Globulin 3.6 g/dL (1.3-4.6); Glomerular Filtration Rate 104.1 mL/min (90-130); Glucose 116 mg/dL (65-115); Lipase 21 U/L (13-60); Osmolality Calculated 281 mOsm/kg (285-295); Potassium 3.4 mmol/L (3.5-5.1); Sodium 136 mmol/L (136-145); Total Bilirubin 0.6 mg/dL (0.15-1.2); Total Protein 7.7 g/dL (6.6-8.7)
[2022-08-30 20:40] VITALS: BP 111/60; PULSE 80; RESP 18; O2SAT 96
[2022-08-30 21:03] LABS: Urine Color Yellow (Yellow)
[2022-08-30 21:04] LABS: Add Urine Microscopic? YES; Bilirubin Urine 1+ (Negative); Blood Urine 3+ (Negative); Glucose Urine UA Norm (Normal); Ketones Urine 2+ (Negative); Leukocyte Esterase Urine Negative (Negative); Nitrate Urine Negative (Negative); Protein Urine Neg (Negative); Urine Appearance SL Hazy (CLEAR); Urobilinogen Urine 4 mg/dL (Negative); pH Urine 5 (5-7)
[2022-08-30] MEDS: sodium chloride 0.9% 1,000 ML 999 ML IV (21:06)
[2022-08-30 21:08] VITALS: RESP 16
[2022-08-30] MEDS: ondansetron 2 mg/ML SDV 2 mL 4 MG IVP (21:08)
[2022-08-30] MEDS: morphine 4 mg/mL SDV 1 mL IVP (21:08)
[2022-08-30 21:09] LABS: Add Urine Culture? No; Bacteria Urine TRACE /hpf; Squamous Epithelial Cell Urine 15-25 /hpf (0-5); WBC Urine 0-4 /hpf (0-5)
--- NOTE | 2022-08-30 21:15 | PC.NURSE ---
Dr Baum talking with patient at bedside
[2022-08-30 21:31] VITALS: BP 123/81; PULSE 81; RESP 16; O2SAT 98
--- NOTE | 2022-08-30 22:43 | ANES.PREANE2 ---
Pre-Anesthetic Assessment Height/Weight: Height 1.7 m Weight 81.647 kg Temp Pulse Resp BP Pulse Ox O2 Del Method 98.1 F 81 16 123/81 98 08/30/22 18:37 08/30/22 21:31 08/30/22 21:31 08/30/22 21:31 08/30/22 21:31 08/30/22 21:31 Preop Diagnosis: Ectopic Ex Lap Operation Date: 08/30/22 22:30 Proposed Procedures p Laparoscopic Ectopic (Not Applicable) - González Walker MD Was Beta Lisha taken within 24 hours: N/A Was Clonidine taken within 24 hours: N/A Last intake: 0800 Last Intake: 08:00 Exam alert, oriented x 3, clear to auscultation bilaterally and regular rate & rhythm Airway Submandibular: within normal limits Cervical ROM: within normal limits Mallampati: Class II Dentition: chipped Comments: Comments: very bad dentition History/ROS No significant history except as noted and No significant complaints Pulmonary Asthma CV/HEM None reported None reported Hepatic None reported GI None reported Metabolic None reported Musc/skel None reported Neuropsych None reported Drug Hx on methadone Anesthetic Plan ASA status: 2E Anesthesia: General Risk of > 500 ml blood loss (7ml/kg in children): No Medications/Allergies Home Medications Medication Instructions Recorded Confirmed Last Taken Type methadone 40 mg soluble tablet 180 mg PO DAILY 08/30/22 08/30/22 08/30/22 History Allergies Allergy/AdvReac Type Severity Reaction Status Date / Time ketorolac [From Toradol] Allergy ADR-Halluci Verified 08/30/22 21:05 [facility] tramadol Allergy ADR-Halluci Verified 08/30/22 21:04 [facility] Anesthesia Medical History (Updated 08/30/22 @ 22:02 by Marily Cagle MD) No pertinent past medical history Family History Denies family history of Colon cancer Ovarian cancer Diabetes Heart disease Hypercholesteremia Breast cancer Hypertension Uterine cancer Thyroid disease Stroke Social History (Updated 08/30/22 @ 18:52 by Marily Cagle MD) Substance/Drug Use: former Female Reproductive History Date of last menstrual period: 03/10/22 Data Anesthesia 08/30/22 19:17 08/30/22 19:17 Short CBC 08/30/22 Range/Units 19:17 WBC 15.8 H (4.0-10.0) 10^3/uL Hgb 12.5 (11.5-15.3) g/dL Hct 38.0 (37.0-47.0) % MCV 91.1 (81-99) fl Plt Count 295 (130-400) 10^3/cmm Neut % (Auto) 68.6 % Neut # (Auto) 10.84 H (1.8-7.7) 10^3/uL BMP 08/30/22 19:17 Sodium 136 Potassium 3.4 L Chloride 101 Carbon Dioxide 23 BUN 8 Creatinine 0.8 Glucose 116 H Calcium 9.4 Liver Function 08/30/22 Range/Units 19:17 Total Bilirubin 0.6 (0.15-1.2) mg/dL AST 11 (0-32) U/L ALT 7 (0-33) U/L Alkaline Phosphatase 121 H (35-105) U/L Albumin 4.1 (3.5-5.2) g/dL Urine 08/30/22 Range/Units 20:02 Urine Color Yellow (Yellow) Urine Appearance Sl hazy A (CLEAR) Urine pH 5 (5-7) Ur Specific [place] 1.030 (1.005-1.030) Urine Protein Neg (Negative) Urine Glucose (UA) Norm (Normal) Urine Ketones 2+ H (Negative) Urine Nitrate Negative (Negative) Urine Bilirubin 1+ H (Negative) Ur Leukocyte Esterase Negative (Negative) Urine RBC 10-15 H (0-2) /hpf Urine WBC 0-4 H (0-5) /hpf Blood Bank 08/30/22 19:17 Blood Type O Positive Rho(D) Type Positive Antibody Screen Negative Cardiac Studies: No Data to Display
[2022-08-30] MEDS: ceFAZolin 2,000 MG in sodium chloride 0.9% (plus) 50 ML 100 MG IV (22:50)
[2022-08-31] VITALS (73 sets, daily range): BP systolic 95–128; BP diastolic 51–73; PULSE 57–87; RESP 15–20; TEMP 36.1–36.7; O2SAT 89–100
--- NOTE | 2022-08-31 00:15 | P.OP_ITS ---
Operative Report Date of procedure: August 31, 2022 Pre-op diagnosis: Preop Diagnosis Ectopic Post-op diagnosis: Right ruptured ectopic Post-op findings: Right ruptured ectopic Procedure done: Laparoscopic partial salpingectomy Specimens removed/disposition: Right fallopian tube with ectopic Surgeon: González Walker MD Estimated blood loss (mL): 700 IV fluids (mL): 900 Urine output (mL): 200 Findings: Rupture of ectopic right side. Approximately 700 mL of blood in abdomen/pelvis Procedure: After informed consent obtained at the ER, the patient was taken to the operating room where general anesthesia was administered. The patient was examined under anesthesia and found to have a normal uterus with normal adnexa. She was placed in the dorsal lithotomy position and prepped and draped in sterile fashion. Pre-Procedure Time-Out verifying the correct patient identity, correct procedure verified with consent, correct site and side, correct patient position, availability of correct implants and any special equipment or requirements was performed and acknowledge by the OR team. A weighted speculum was placed in the vagina, and the anterior lip of cervix was grasped with the single toothed tenaculum. A uterine manipulator was advanced into the endocervical. Tenaculum was removed after uterine manipulator was secured. The speculum was removed from the vagina. An intraumbilical incision was made with a scalpel. While tenting up on the abdomen, a Verres needle with sleeve was admitted into the intra-abdominal cavity. A saline drop test was performed and noted to be within normal limits. Pneumoperitoneum was attained with 4 liters of carbon dioxide. The Verres needle was removed. A 5 mm trocar and sleeve were admitted into the abdomen and laparoscopic confirmation of location was achieved, A second incision was made 3 cm above the symphysis pubis, and a 5 mm trocar and sleeve were admitted into the abdomen under direct, laparoscopic visualization without complication. A survey revealed normal abdominal anatomy with blood pooled in the pelvis. The pelvic survey shows normal uterus, left adnexa. A right rupture fallopian tube ectopic . A 5 mm blunt probe was advanced through the second trocar sleeve, and light manipulation of ovaries and uterus to assess the posterior aspects was performed. Next, the Vázquez suction negative developer was used to copiously irrigate the abdomen. Approximate total of 1 liters of irrigation was used and the majority of all blood clots and free blood was removed from the abdomen. Three bites with the Enseal device was used to transect the mesosalpinx inferior to the fallopian tube and then transect the fallopian tube proximal to the ectopic . An EndoCatch bag was then placed to the size #10 port and this was used to remove the right fallopian tube and ectopic . This was then sent to the pathology. Next, the right mesosalpinx and remains of the fallopian tube were examined again and they were seemed to be hemostatic. The abdomen was further irrigated. At this point, the two size #5 ports and a size #10 port were removed under direct visualization. The camera was then removed. Carbon dioxide was allowed to escape from the abdomen. The instruments were removed and All laparoscopic incisions were closed with a #4-0 undyed Vicryl in a subcuticular interrupted fashion. At the end of the procedure, the uterine manipulator was removed from the cervix and the patient was taken to Recovery in stable condition. The patient tolerated the procedure well. Sponge, lap, and needle counts were correct x2.
[2022-08-31] MEDS: ondansetron 2 mg/ML SDV 2 mL 4 MG IVP (00:30)
[2022-08-31] MEDS: dextrose 5%-lactated ringers 1,000 ML 125 ML IV (01:45)
[2022-08-31] MEDS: HYDROcodone-acetaminophen 5-325 mg Tablet PO ×2 (01:46→07:59)
[2022-08-31 05:41] LABS: Hematocrit 29.2 % (37.0-47.0); Hemoglobin 9.6 g/dL (11.5-15.3); Mean Corpuscular HGB Conc 32.9 g/dL (30.0-36.0); Mean Corpuscular Volume 91.3 fl (81-99); Mean Platelet Volume 8.7 fL (7.4-10.4); Platelet Count 222 10^3/cmm (130-400); Red Cell Distribution Width 11.9 % (12.1-15.1); White Blood Count 9.8 10^3/uL (4.0-10.0)
[2022-08-31] MEDS: simethicone 80 mg Chew PO (05:51)
--- NOTE | 2022-08-31 10:56 | PM.SDS ---
Short Stay Summary Providers Date of Admit/Discharge: 08/31/22 Attending Provider: González Walker MD Chief Complaint: vaginal bleeding, constipation, 5 wks HPI History of Present Illness Arvin Rogers is a 27 year -0-1-1 old female presented to the emergency room referring pelvic pain and vaginal bleeding. On evaluation positive test ultrasound identified a right adnexal mass with gestational sac, crown-rump length of 8 weeks with cardiac activity 153 bpm. She referred her last menstrual period was approximately July 18, 2022, but she is not certain. Review of Systems Const: Denies: fever(s), chills, body aches or change in appetite Eyes: Denies: blurry vision or eye discomfort ENMT: Denies: throat pain or dental pain Card: Denies: chest pain Resp: Denies: dyspnea GI: Reports: abdominal pain (mild at incision site) : Reports: vaginal bleeding Musc: Denies: neck pain or back pain Skin/Breast: Denies: rash Neuro: Denies: headache(s) Psych: Denies: depression Tab/Lymph: Denies: easy bruising All/Imm: Denies: urticaria Home Meds/Allergies Home Medications and Allergies Home Medications Medication Instructions Recorded Confirmed Type methadone 40 mg soluble tablet 180 mg PO DAILY 08/30/22 08/30/22 History Allergies Allergy/AdvReac Type Severity Reaction Status Date / Time ketorolac [From Toradol] Allergy ADR-Halluci Verified 08/30/22 21:05 nating tramadol Allergy ADR-Halluci Verified 08/30/22 21:04 nating PFSH Acute PFSH: Medical History (Updated 08/30/22 @ 22:02 by Marily Cagle MD) No pertinent past medical history Family History Denies family history of Colon cancer Ovarian cancer Diabetes Heart disease Hypercholesteremia Breast cancer Hypertension Uterine cancer Thyroid disease Stroke Social History (Updated 08/30/22 @ 18:52 by Marily Cagle MD) Substance/Drug Use: former Female Reproductive History: Date of last menstrual period: 03/10/22 Vitals/I&O/Wt Last Vital Signs Temp 98.0 F 08/31/22 01:13 Pulse 70 08/31/22 05:51 Resp 15 08/31/22 01:13 BP 117/65 08/31/22 05:35 Pulse Ox 97 08/31/22 05:51 O2 Del Method 08/31/22 00:58 08/30/22 08/31/22 08/31/22 22:59 06:59 14:59 Intake Total 950 / 950 Output Total 1100 / 1100 100 / 100 Balance -150 / -150 -100 / -100 Weight last 48 hrs Weight 81.647 kg Physical Exam Const: COMMON NORMALS: no acute distress, average body habitus and patient oriented x3 GENERAL APPEARANCE: cooperative and well [facility] HENMT: COMMON NORMALS: normocephalic and atraumatic HEAD & SCALP: normocephalic and atraumatic Neck/C-Spine: COMMON NORMALS: full ROM Chest: COMMONS NORMALS: normal inspection of the chest Resp: COMMON NORMALS: normal respiratory effort Cardio: COMMON NORMALS: regular rate and regular rhythm RATE: regular rate RHYTHM: regular rhythm GI: COMMON NORMALS: Soft to palpation INSPECTION: Yes normal to inspection and Yes incision (Dermabond in place, no bleed) Inspection of incision: healing well AUSCULTATION: Yes normoactive bowel sounds PALPATION: Yes Soft to palpation, Yes Tenderness to palpation present (GI), No Guarding due to palpation present (GI) and No Rigid due to palpation PERCUSSION: normal to percussion : EXTERNAL FEMALE EXAM: Yes normal appearance of the urethra and No urethral discharge SPECULUM EXAM - VAGINA: Yes vaginal bleeding SPECULUM EXAM - CERVIX: Yes Cervical os closed and No Tissue present in the cervical os BIMANUAL EXAM - VAGINA & UTERUS: Yes cervical motion tenderness, Yes uterine size normal, No Uterine tenderness and No enlarged BIMANUAL EXAM - ADNEXA, OTHER: No tender OB/EXTERNAL & SPECULUM: vaginal bleeding Neuro: COMMON NORMALS: patient oriented x3 Psych: APPEARANCE: Yes well [facility] Hospital Course Admission Diagnoses Right ectopic Hospital Course The patient diagnosed with an ectopic and urgently taken to the OR. During diagnostic laparoscopy at initial entry and hemoperitoneum was noted with approximately 700 to 800 mL of blood in the pelvis. A rupture right fallopian tube ectopic was noted. A right salpingectomy was performed. Overnight observation was uneventful. She is ambulating without difficulty. Tolerating diet well. Pain well under control. SSS Data Data Completed and Pending: Completed Studies During Hospitalization Category Date Time Status US OB <= 14 weeks fetus [id number] Stat Ultrasound 08/30/22 20:01 Completed Pending at discharge Category Date Time Status Pathology: Surgic al [PTH] Routine Pth 08/31/22 00:23 Ordered Procedures Performed: Diagnostic laparoscopy. Right salpingectomy with ectopic . Discharge Plan Discharge Patient Disposition: Home Condition: Good Prescriptions: New hydrocodone-acetaminophen 5-325 mg tablet 1 tab PO Q4H PRN (Reason: pain) Qty: 10 0RF docusate sodium [Colace] 100 mg capsule 100 mg PO BID Qty: 60 0RF ferrous sulfate [Iron (ferrous sulfate)] 325 mg (65 mg iron) tablet 325 mg PO BID Qty: 30 0RF acetaminophen 325 mg capsule 325 mg PO Q4H PRN (Reason: fever or pain) Qty: 60 0RF Continued methadone 40 mg Tablet,Soluble 180 mg PO DAILY Discharge Orders: Discharge Order (Routine); Ordered 08/31/22 Ordered By: González Walker Referrals: González Walker MD [Physician] - 2 weeks Discharge Diet: GI Soft Discharge Activity: Limit activity as instructed Patient Instructions: Opioid Safety, Laparoscopy, Ectopic (GEN), Salpingectomy (GEN) Activity Restrictions/Additional Instructions: 1. Please call [facility] on next working day to make your post-operative appointment in 2 weeks. 2. Please stay home until you come back to the clinic on first post-operative check up. 3. Please follow instructions on your medications CAREFULLY. 4. If you have abdominal incision, do not cover it unless dressing is necessary because of drainage. OK to shower, but avoid bath. Leave steri-strips until they fall off. If they are still on one week after surgery, you may remove them. 5. If you had vaginal surgery or vaginal repair, Dr. Walker may instruct you to take SITZ bath. 6. Yellow, blood tinged odorous vaginal discharge is usually normal after hysterectomy or vaginal surgeries. 7. No sexual intercourse, tampons, or douches until you are completely released from the post-operative care. 8. Avoid constipation by eating right and maybe using some Metamucil or Milk of Magnesia. 9. All prescription refills are given during the working hours. Please do no wait till it runs out. Call the clinic at [phone] before your medication runs out. The clinic will get in touch with your doctor to prescribe medications if necessary. 10. Please remain within 40 mile radius from our hospital because emergencies do happen now and then during the post-operative period. 11. If you have stairs at home, take one step at a time slowly and minimize the number of trips. It helps to stay in one floor for the next few days. No lifting except what you can lift by one hand until you are released from the post-operative care. 12. Driving is discouraged until you are well healed. It may be 3-4 weeks before you feel strong enough to drive. You should be able to turn and look through the rear window without pain and you should be able to push the brake pedal very hard without pain before you drive. No fast rules, but SAFETY should be your primary concern. DO NOT drive if you are on sedating medications such as narcotics. 13. Call the clinic (during working hours) to make urgent appointment or go to the Emergency room, if any of the following occurs: i. Vaginal bleeding becomes heavy, more than a period. ii. Incision becomes red and sore, or drains pus. iii. Your temperature is over 100.4 or you have chill. iv. IV site becomes red and swollen (a little ``knot?? is usually OK) v. Persistent nausea and vomiting vi. Persistent constipation or diarrhea vii. Rash or allergic reaction to medications. Attestations Medical Necessity Statement*: In my professional opinion per admitting diagnoses Time Spent in Patient Care*: greater than 30 min Quality Metrics Clinical Quality Measures: [ No reported AMI, CVA or VTE this stay] Coding Level of Care Code Acute Code for Chg Fwd
[2022-08-31] MEDS: methadone 10 mg Tablet 180 MG PO (11:40)
[2022-08-31] MEDS: docusate sodium 100 mg Capsule PO (11:40)
== END 2022-08-31 13:15 | disposition home or self-care (01) ==
LOC: ER 22:02 → OBGYN 08-31 00:27
PROVIDERS: Admitting Provider Obstetrics & Gynecology; Emergency Provider Emergency Medicine; Visit Provider Obstetrics & Gynecology
PROC: (CPT 59150; principal; 2022-08-30 22:30)
DX: O00.101 Right tubal pregnancy without intrauterine pregnancy (principal); Z87.891 Personal history of nicotine dependence
CPT/HCPCS: 59151; 36415; 76801; 80053; 81001; 83690; 84702; 85025; 85027; 86850; 86900; 88305; 96361; 96365; 96375; 99285; G0378; J0690; J1100; J2270; J2405; J2704; J2710; J3010; J3490; J7030; J7121